=== PATIENT | male | born 1955 | race Caucasian/White ===

== ENCOUNTER 2017-06-08 14:58 | Emergency (ER) | payer OTHER ==
[~2017-06-08] VITALS: Ht 177.8 cm; Wt 60.0 kg
[~2017-06-08 14:58] MED LIST: CITA10TA4 PO; DILA100C PO; DILA125S PEG; DOCU100S PEG; DUONI NEB; ENOX40P SQ; KEPP750T PO; LORTA5 PO; MELO7.5T27 PO; RANI150 PEG; TRAZ100T10 PO; TRIPOIN TOPICAL
[2017-06-08 15:01] VITALS: BP 119/74; PULSE 80; RESP 13; TEMP 98.7; O2SAT 97
--- NOTE | 2017-06-08 16:05 | PD ---
HPI Chief Complaint: Wound/Suture/Staple Re-Check Time Seen by Provider: 16:02 Travel History International Travel<30 days: No Contact w/Intl Traveler<30days: No Traveled to known affect area: No History of Present Illness HPI This patient presents for suture removal. He was seen here in September or with a laceration to left occipital scalp. This was repaired with nonabsorbable sutures. The patient reports frustration because he was under the impression that he could not shower until the sutures removed. He has dried blood and scabbing at the site of the wound. No other complaints at this time. PFSH Past Medical History Arthritis: No Asthma: No Autoimmune Disease: No Blood Disorders: No Anxiety: Yes Depression: Yes Heart Rhythm Problems: No Cancer: No Cardiovascular Problems: No High Cholesterol: No Chemotherapy: No Chest Pain: Yes (When smoking) Congestive Heart Failure: No COPD: Yes Cerebrovascular Accident: Yes (SUBDURAL HEMATOMA) Diabetes: No Diminished Hearing: Yes ([place] ) Endocrine: No GERD: No Genitourinary: No Hiatal Hernia: No Immune Disorder: No Kidney Stones: No Musculoskeletal: No Neurologic: Yes (HX SUBDURAL HEMATOMA) Psychiatric: No Reproductive: No Respiratory: No Immunizations Current: Yes Migraines: No Radiation Therapy: No Renal Failure: No Seizures: Yes Sickle Cell Disease: No Sleep Apnea: Yes Thyroid Disease: No Ulcer: No Past Surgical History Abdominal Surgery: Yes (HERNIA) Cardiac Surgery: No Ear Surgery: No Endocrine Surgery: No Eye Surgery: No Genitourinary Surgery: Yes (VASECTOMY) Gynecologic Surgery: No Neurologic Surgery: Yes (TBI, SUBDURAL HEMATOMA EVACUATION) Oral Surgery: No Pacemaker: No Thoracic Surgery: No Other Surgery: Yes (TBI, HERNIA, VASECTOMY) Social History Alcohol Use: Yes (occ) Tobacco Use: No Substance Use: No Allergies-Medications (Allergen,Severity, Reaction): Coded Allergies: sertraline (Unverified Allergy, Unknown, 06/07/17) *MDRO Multi-Drug Resistant Organism (Verified Allergy, 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 Reported Resp: Albuterol/Ipratropium 2.5 Mg/0.5 Mg (Albuterol/Ipratropium) 1 Amp Nebu 1 Amp NEB Q6HPRN Colace (Docusate Sodium) 100 Mg/10 Ml Soln 100 Mg PEG BID Lovenox (Enoxaparin Sodium) 40 Mg/0.4 Ml Inj 40 Mg SQ DAILY UNGRADUATED PREFILLED SYRINGE Zantac 150 Mg Tab (Ranitidine HCl) 150 Mg Tab 150 Mg PEG BID Dilantin Susp (Phenytoin) 125 Mg/5 Ml Susp 150 Mg PEG TID Lortab 5/325 Tab (Hydrocodone-Acetaminophen) 1 Tab Tab 1 Tab PO Q6HPRN Meloxicam 7.5 Mg Tab 7.5 Mg PO DAILY Citalopram (Citalopram Hydrobromide) 10 Mg Tab 10 Mg PO DAILY Keppra (Levetiracetam) 750 Mg Tab 750 Mg PO BID Dilantin (Phenytoin Extended) 100 Mg Cap 100 Mg PO HS Dilantin (Phenytoin Extended) 100 Mg Cap 3 Tab PO DAILY@0600 Trazodone (Trazodone HCl) 100 Mg Tablet 100 Mg PO HS Review of Systems General / Constitutional: No: Fever Skin: Positive Other (positive for scabbing, sutures) Physical Exam Narrative GENERAL: This is a thin and frail male in no acute distress. SKIN: Warm and dry. Healing laceration to the left occipital scalp. The sutures are entirely covered by scabbing. HEAD: Skin as noted above. Normocephalic. EYES: Pupils equal and round. No scleral icterus. No injection or drainage. ENT: No nasal bleeding or discharge. Mucous membranes pink and moist. NECK: Trachea midline. No JVD. Data Data Last Documented VS Vital Signs Date Time Temp Pulse Resp B/P (MAP) Pulse Ox O2 Delivery O2 Flow Rate FiO2 06/08/17 15:01 98.7 80 13 119/74 (89) 97 Orders Orders Ed Discharge Order (06/08/17 16:02) [facility] Medical Decision Making Medical Screen Exam Complete: Yes Emergency Medical Condition: Yes Medical Record Reviewed: Yes Differential Diagnosis Suture removal, wound dehiscence, infected wound Narrative Course The scabbing had to be completely removed in order to remove the sutures which resulted in some wound dehiscence. Local wound care provided. The patient is stable for discharge. Diagnosis Primary Impression: Visit for suture removal Additional Instructions: Wash the wound on a daily basis with soap and water and apply antibiotic cream Med/Other Pt SpecificInfo: Wound Care Disposition: 01 DISCHARGE HOME Condition: Stable Sven Pelaez Jun 08, 2017 16:05
== END 2017-06-08 16:25 | disposition home or self-care (01) ==
LOC: NEPD 14:58
DX: Z48.02 Encounter for removal of sutures (principal)
CPT/HCPCS: 99281

== ENCOUNTER 2017-10-08 15:43 | Emergency (ER) | payer OTHER ==
[~2017-10-08] VITALS: Ht 177.8 cm; Wt 58.2 kg
[2017-10-08 16:04] VITALS: BP 118/84; PULSE 75; RESP 18; TEMP 98.9; O2SAT 98
--- NOTE | 2017-10-08 16:47 | PD ---
HPI Chief Complaint: Psychiatric Symptoms Time Seen by Provider: 16:42 Travel History International Travel<30 days: No Contact w/Intl Traveler<30days: No Traveled to known affect area: No History of Present Illness HPI Patient was sent to the emergency department from the [place] under Armando act for psychiatric evaluation. Per Armando act patient has been drinking excessively and falling. Patient denies any homicidal or suicidal ideations. Denies any visual or auditory hallucinations. Patient denies any pain anywhere. Denies anything makes symptoms better or worse. Patient states the [place] placed him under armando act and sent him for a CAT scan to make sure he did not have a head bleed as he has previously had bleeds in his brain. Denies any chest pain, shortness breath, fevers, nausea, vomiting, abdominal pain, loss change in bowel or bladder, weakness, numbness or tingling anywhere. PFSH Past Medical History Hx Anticoagulant Therapy: No Arthritis: No Asthma: No Autoimmune Disease: No Blood Disorders: No Anxiety: Yes Depression: Yes Heart Rhythm Problems: No Cancer: No Cardiovascular Problems: No High Cholesterol: No Chemotherapy: No Chest Pain: Yes (When smoking) Congestive Heart Failure: No COPD: Yes Cerebrovascular Accident: No Diabetes: No Diminished Hearing: Yes ([place] Endocrine: No GERD: No Genitourinary: No Hiatal Hernia: No Immune Disorder: No Kidney Stones: No Musculoskeletal: No Neurologic: Yes (HX SUBDURAL HEMATOMA) Psychiatric: No Reproductive: No Respiratory: No Immunizations Current: Yes Migraines: No Radiation Therapy: No Renal Failure: No Seizures: Yes Sickle Cell Disease: No Sleep Apnea: Yes Thyroid Disease: No Ulcer: No Past Surgical History Abdominal Surgery: Yes (HERNIA) Cardiac Surgery: No Ear Surgery: No Endocrine Surgery: No Eye Surgery: No Genitourinary Surgery: Yes (VASECTOMY) Gynecologic Surgery: No Neurologic Surgery: Yes (TBI, SUBDURAL HEMATOMA EVACUATION) Oral Surgery: No Pacemaker: No Thoracic Surgery: No Other Surgery: Yes (TBI, HERNIA, VASECTOMY) Social History Alcohol Use: Yes (occ) Tobacco Use: No Substance Use: No Allergies-Medications (Allergen,Severity, Reaction): Coded Allergies: *MDRO Multi-Drug Resistant Organism (Verified Allergy, Unknown, 10/08/17) MDR Stenotrophomonas maltophilia sertraline (Unverified Allergy, Unknown, 10/08/17) Reported Meds & Prescriptions Reported Meds & Active Scripts Active Reported Meloxicam 7.5 Mg Tab 7.5 Mg PO DAILY Keppra (Levetiracetam) 750 Mg Tab 750 Mg PO BID Dilantin (Phenytoin Extended) 100 Mg Cap 100 Mg PO HS Dilantin (Phenytoin Extended) 100 Mg Cap 3 Tab PO DAILY@0600 Trazodone (Trazodone HCl) 100 Mg Tablet 100 Mg PO HS Review of Systems Except as stated in HPI: all other systems reviewed are Neg Physical Exam Narrative GENERAL: Well-developed, under nourished, in no acute distress, and non-ill appearing. SKIN: Focused skin assessment warm and dry. HEAD: Atraumatic. Normocephalic. EYES: Pupils equal and round. EOMI. No scleral icterus. No injection or drainage. ENT: No nasal bleeding or discharge. Mucous membranes pink and moist. NECK: Trachea midline. Supple. No nuclear rigidity. CARDIOVASCULAR: Regular rate and rhythm. No murmur appreciated. Radial pulses 2+, intact, and equal bilaterally. Capillary refill less than 2 seconds. RESPIRATORY: No accessory muscle use. No respiratory distress. Clear to auscultation. Breath sounds equal bilaterally. GASTROINTESTINAL: Abdomen soft, non-tender, nondistended, and no guarding. Hepatic and splenic margins not palpable. No pulsatile mass. MUSCULOSKELETAL: No obvious deformities. No clubbing. No cyanosis. No edema. Full range of motion. Shoulder:FROM equal BL with passive flexion, extension, Abduction, Adduction, internal/external rotation, and pronation/supination. Sensation equal BL deltoid muscles. Pulses equal BL distal to injury. Capillary refill less than 2 seconds distal to injury and equal BL. FROM distal to injury and equal BL. Strength distal to injury equal BL. NV intact distal to injury equal BL. Flexion and extension of thumb equal BL. Equal strength and movement with abduction/adductions of BL fingers. Evening Or Night Nurse Supervisor strength equal BL. NEUROLOGICAL: Awake and alert. No obvious cranial nerve deficits. Motor grossly within normal limits. Normal speech. PSYCHIATRIC: Appropriate mood and affect; insight and judgment normal. Data Data Last Documented VS Vital Signs Date Time Temp Pulse Resp B/P (MAP) Pulse Ox O2 Delivery O2 Flow Rate FiO2 10/09/17 13:03 10/09/17 07:52 66 10/09/17 07:51 98.5 18 98 Room Air Orders Orders Complete Blood Count With Diff (10/08/17 16:42) Comprehensive Metabolic Panel (10/08/17 16:42) Thyroid Stimulating Hormone (10/08/17 16:42) Psych Screen (10/08/17 16:42) Drug Screen, Random Urine (10/08/17 16:42) Alcohol (Ethanol) (10/08/17 16:42) Salicylates (Aspirin) (10/08/17 16:42) Tylenol (Acetaminophen) (10/08/17 16:42) Ct Brain W/O Iv Contrast(Rout) (10/08/17 ) Phenytoin (Dilantin) (10/08/17 16:42) Levetiracetam (Keppra) (10/09/17 01:00) Phenytoin (Dilantin) (10/09/17 01:00) Trazodone (Desyrel) (10/09/17 01:00) Terazosin (Hytrin) (10/09/17 01:00) Donepezil (Aricept) (10/09/17 01:00) Citalopram (Celexa) (10/09/17 01:00) Acyclovir (Zovirax) (10/09/17 01:00) Ed Discharge Order (10/09/17 12:40) Labs Laboratory Tests Test 10/08/17 17:50 10/09/17 01:57 White Blood Count 5.1 TH/MM3 Red Blood Count 4.40 MIL/MM3 Hemoglobin 14.2 GM/DL Hematocrit 42.2 % Mean Corpuscular Volume 95.8 FL Mean Corpuscular Hemoglobin 32.3 PG Mean Corpuscular Hemoglobin Concent 33.7 % Red Cell Distribution Width 14.8 % Platelet Count 269 TH/MM3 Mean Platelet Volume 8.5 FL Neutrophils (%) (Auto) 61.0 % Lymphocytes (%) (Auto) 27.0 % Monocytes (%) (Auto) 10.0 % Eosinophils (%) (Auto) 0.9 % Basophils (%) (Auto) 1.1 % Neutrophils # (Auto) 3.1 TH/MM3 Lymphocytes # (Auto) 1.4 TH/MM3 Monocytes # (Auto) 0.5 TH/MM3 Eosinophils # (Auto) 0.0 TH/MM3 Basophils # (Auto) 0.1 TH/MM3 CBC Comment DIFF FINAL Differential Comment Blood Urea Nitrogen 16 MG/DL Creatinine 0.82 MG/DL Random Glucose 82 MG/DL Total Protein 6.8 GM/DL Albumin 3.8 GM/DL Calcium Level 8.5 MG/DL Alkaline Phosphatase 87 U/L Aspartate Amino Transf (AST/SGOT) 25 U/L Alanine Aminotransferase (ALT/SGPT) 33 U/L Total Bilirubin 0.5 MG/DL Sodium Level 138 MEQ/L Potassium Level 4.1 MEQ/L Chloride Level 102 MEQ/L Carbon Dioxide Level 24.5 MEQ/L Anion Gap 12 MEQ/L Estimat Glomerular Filtration Rate 95 ML/MIN Thyroid Stimulating Hormone 3rd Gen 0.836 uIU/ML Salicylates Level LESS THAN 1.7 MG/DL Acetaminophen Level LESS THAN 2.0 MCG/ML Phenytoin (Dilantin) Level 11.5 MCG/ML Ethyl Alcohol Level LESS THAN 3 MG/DL Urine Opiates Screen NEG Urine Barbiturates Screen NEG Urine Amphetamines Screen NEG Urine Benzodiazepines Screen NEG Urine Cocaine Screen NEG Urine Cannabinoids Screen NEG MDM Medical Decision Making Medical Screen Exam Complete: Yes Emergency Medical Condition: Yes Differential Diagnosis Intracranial hemorrhage, metabolic disturbance, acute psychosis, substance abuse Narrative Course Patient was seen and examined. Initial laboratory and radiological studies were ordered. Patient signed out to Odilon Osuna PA-C at the end of my shift pending labs. Please see his documentation for final diagnosis and disposition. Diagnosis Primary Impression: Medical clearance for psychiatric admission Condition: Stable Toño Moore Oct 08, 2017 16:47
--- NOTE | 2017-10-08 17:44 | RADRPT ---
EXAM DATE: 10/08/2017 5:32 PM EDT AGE/SEX: 61 years / Male INDICATIONS: Altered mental status. CLINICAL DATA: This is the patient's initial encounter. Patient reports that signs and symptoms have been present for 1 day and indicates a pain score of 0/10. MEDICAL/SURGICAL HISTORY: . Subdural hematoma Seizures Craniotomy. RADIATION DOSE: 66.34 CTDI (mGy) COMPARISON: [facility] [place]RAIN [place]/O CONTRAST, 05/24/2017. . TECHNIQUE: CT of the head without contrast. Using automated exposure control and adjustment of the mA and/or kV according to patient size, radiation dose was kept as low as reasonably achievable to ob tain optimal diagnostic quality images. 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 Left hemisphere unremarkable Ventricular size is appropriate Posterior fossa unremarkable Orbits and paranasal sinuses appear normal Previous craniotomy on the right. CONCLUSION: 1. 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 2. Negative for an acute process. Electronically signed by: Zion Almazan MD 10/08/2017 5:42 PM EDT
[2017-10-08 18:53] LABS: AUTOMATED NEUTROPHIL # 3.1 TH/MM3 (1.8-7.7); BASOPHIL # 0.1 TH/MM3 (0-0.2); BASOPHIL % 1.1 % (0.0-2.0); EOSINOPHIL % 0.9 % (0.0-4.0); HEMATOCRIT 42.2 % (39.0-51.0); HEMOGLOBIN 14.2 GM/DL (13.0-17.0); LYMPHOCYTE # 1.4 TH/MM3 (1.0-4.8); MEAN CELL VOLUME 95.8 FL (80.0-100.0); MEAN CORPUSCULAR HEMOGLOBIN 32.3 PG (27.0-34.0); MEAN CORPUSCULAR HGB CONC 33.7 % (32.0-36.0); MEAN PLATELET VOLUME 8.5 FL (7.0-11.0); MONOCYTE # 0.5 TH/MM3 (0-0.9); PLATELET COUNT 269 TH/MM3 (150-450); RED CELL DISTRIBUTION WIDTH 14.8 % (11.6-17.2); WHITE BLOOD COUNT 5.1 TH/MM3 (4.0-11.0)
[2017-10-08 19:21] LABS: ALBUMIN 3.8 GM/DL (3.4-5.0); ALT (GPT) 33 U/L (12-78); AST (GOT) 25 U/L (15-37); BICARBONATE 24.5 MEQ/L (21.0-32.0); BLOOD UREA NITROGEN 16 MG/DL (7-18); CALCIUM 8.5 MG/DL (8.5-10.1); CHLORIDE 102 MEQ/L (98-107); CREATININE 0.82 MG/DL (0.60-1.30); GLOMERULAR FILTRATION RATE 95 ML/MIN (>89); GLUCOSE,RANDOM 82 MG/DL (74-106); PHENYTOIN (DILANTIN) 11.5 MCG/ML (10.0-20.0); SODIUM (NA) 138 MEQ/L (136-145)
[2017-10-08 19:31] LABS: ALKALINE PHOSPHATASE 87 U/L (45-117); TOTAL BILIRUBIN ADULT 0.5 MG/DL (0.2-1.0); TOTAL PROTEIN 6.8 GM/DL (6.4-8.2)
--- NOTE | 2017-10-08 19:40 | PD ---
Physical Exam Date Seen by Provider: Oct 08, 2017 Time Seen by Provider: 19:39 Data Data Last Documented VS Vital Signs Date Time Temp Pulse Resp B/P (MAP) Pulse Ox O2 Delivery O2 Flow Rate FiO2 10/08/17 16:04 98.9 75 18 118/84 (95) 98 Orders Orders Complete Blood Count With Diff (10/08/17 16:42) Comprehensive Metabolic Panel (10/08/17 16:42) Thyroid Stimulating Hormone (10/08/17 16:42) Psych Screen (10/08/17 16:42) Drug Screen, Random Urine (10/08/17 16:42) Alcohol (Ethanol) (10/08/17 16:42) Salicylates (Aspirin) (10/08/17 16:42) Tylenol (Acetaminophen) (10/08/17 16:42) Ct Brain W/O Iv Contrast(Rout) (10/08/17 ) Phenytoin (Dilantin) (10/08/17 16:42) Labs Laboratory Tests Test 10/08/17 17:50 White Blood Count 5.1 TH/MM3 Red Blood Count 4.40 MIL/MM3 Hemoglobin 14.2 GM/DL Hematocrit 42.2 % Mean Corpuscular Volume 95.8 FL Mean Corpuscular Hemoglobin 32.3 PG Mean Corpuscular Hemoglobin Concent 33.7 % Red Cell Distribution Width 14.8 % Platelet Count 269 TH/MM3 Mean Platelet Volume 8.5 FL Neutrophils (%) (Auto) 61.0 % Lymphocytes (%) (Auto) 27.0 % Monocytes (%) (Auto) 10.0 % Eosinophils (%) (Auto) 0.9 % Basophils (%) (Auto) 1.1 % Neutrophils # (Auto) 3.1 TH/MM3 Lymphocytes # (Auto) 1.4 TH/MM3 Monocytes # (Auto) 0.5 TH/MM3 Eosinophils # (Auto) 0.0 TH/MM3 Basophils # (Auto) 0.1 TH/MM3 CBC Comment DIFF FINAL Differential Comment Blood Urea Nitrogen 16 MG/DL Creatinine 0.82 MG/DL Random Glucose 82 MG/DL Total Protein 6.8 GM/DL Albumin 3.8 GM/DL Calcium Level 8.5 MG/DL Alkaline Phosphatase 87 U/L Aspartate Amino Transf (AST/SGOT) 25 U/L Alanine Aminotransferase (ALT/SGPT) 33 U/L Total Bilirubin 0.5 MG/DL Sodium Level 138 MEQ/L Potassium Level 4.1 MEQ/L Chloride Level 102 MEQ/L Carbon Dioxide Level 24.5 MEQ/L Anion Gap 12 MEQ/L Estimat Glomerular Filtration Rate 95 ML/MIN Thyroid Stimulating Hormone 3rd Gen 0.836 uIU/ML Salicylates Level LESS THAN 1.7 MG/DL Phenytoin (Dilantin) Level 11.5 MCG/ML Ethyl Alcohol Level LESS THAN 3 MG/DL [facility] Medical Record Reviewed: Yes Supervised Visit with DIAMANTE: Yes Interpretation(s) Laboratory Tests Test 10/08/17 17:50 White Blood Count 5.1 TH/MM3 Red Blood Count 4.40 MIL/MM3 Hemoglobin 14.2 GM/DL Hematocrit 42.2 % Mean Corpuscular Volume 95.8 FL Mean Corpuscular Hemoglobin 32.3 PG Mean Corpuscular Hemoglobin Concent 33.7 % Red Cell Distribution Width 14.8 % Platelet Count 269 TH/MM3 Mean Platelet Volume 8.5 FL Neutrophils (%) (Auto) 61.0 % Lymphocytes (%) (Auto) 27.0 % Monocytes (%) (Auto) 10.0 % Eosinophils (%) (Auto) 0.9 % Basophils (%) (Auto) 1.1 % Neutrophils # (Auto) 3.1 TH/MM3 Lymphocytes # (Auto) 1.4 TH/MM3 Monocytes # (Auto) 0.5 TH/MM3 Eosinophils # (Auto) 0.0 TH/MM3 Basophils # (Auto) 0.1 TH/MM3 CBC Comment DIFF FINAL Differential Comment Blood Urea Nitrogen 16 MG/DL Creatinine 0.82 MG/DL Random Glucose 82 MG/DL Total Protein 6.8 GM/DL Albumin 3.8 GM/DL Calcium Level 8.5 MG/DL Alkaline Phosphatase 87 U/L Aspartate Amino Transf (AST/SGOT) 25 U/L Alanine Aminotransferase (ALT/SGPT) 33 U/L Total Bilirubin 0.5 MG/DL Sodium Level 138 MEQ/L Potassium Level 4.1 MEQ/L Chloride Level 102 MEQ/L Carbon Dioxide Level 24.5 MEQ/L Anion Gap 12 MEQ/L Estimat Glomerular Filtration Rate 95 ML/MIN Thyroid Stimulating Hormone 3rd Gen 0.836 uIU/ML Salicylates Level LESS THAN 1.7 MG/DL Phenytoin (Dilantin) Level 11.5 MCG/ML Ethyl Alcohol Level LESS THAN 3 MG/DL Last [address] 10/08/17 0000 Signed Impressions: CONCLUSION: 1. 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 2. Negative for an acute process. Differential Diagnosis MDM: High Differential diagnoses: Schizophrenia, schizoaffective disorder, bipolar, anxiety, depression, adjustment reaction, mood disorder NOS, ODD, depressive disorder NOS, dementia, dementia with agitation, psychosis NOS, substance induced mood disorder, DMDD, Asperger syndrome, infection,electrolyte abnormality, malingering. Narrative Course Mental health screening discussed with the patient. Psychiatric screen ordered. The patient has been medically cleared. The CT scan of the brain is unremarkable for acute intracranial injury. Laboratory tests have been reviewed. This is medical clearance for psychiatric admission Diagnosis Primary Impression: Medical clearance for psychiatric admission Condition: Stable Odilon Osuna Oct 08, 2017 19:40
[2017-10-08 19:43] LABS: ACETAMINOPHEN LESS THAN 2.0 MCG/ML (10.0-30.0)
[2017-10-08 23:58] VITALS: BP 123/74; PULSE 70; RESP 18; O2SAT 97
[2017-10-09] MEDS ORDERED: levETIRAcetam 500 MG TAB PO ONE (01:00)
[2017-10-09] MEDS ORDERED: DONEPEZIL HCL 5 MG TAB PO ONE (01:00)
[2017-10-09] MEDS ORDERED: ACYCLOVIR 200 MG CAP PO ONE (01:00)
[2017-10-09] MEDS ORDERED: CITALOPRAM HYDROBROMIDE 20 MG TAB PO ONE (01:00)
[2017-10-09] MEDS ORDERED: traZODone HCL 100 MG TAB PO ONE (01:00)
[2017-10-09] MEDS ORDERED: PHENYTOIN SODIUM 100 MG CAP PO ONE (01:00)
[2017-10-09] MEDS ORDERED: TERAZOSIN HCL 1 MG CAP PO ONE (01:00)
[2017-10-09 07:51] VITALS: BP 140/74; PULSE 66; RESP 18; TEMP 98.5; O2SAT 98
--- NOTE | 2017-10-09 12:42 | PD ---
Physical Exam Date Seen by Provider: Oct 09, 2017 Time Seen by Provider: 12:41 Narrative For full history and physical examination please see previous providers note. Data Data Last Documented VS Vital Signs Date Time Temp Pulse Resp B/P (MAP) Pulse Ox O2 Delivery O2 Flow Rate FiO2 10/09/17 07:52 66 10/09/17 07:51 98.5 18 140/74 (96) 98 Room Air Orders Orders Complete Blood Count With Diff (10/08/17 16:42) Comprehensive Metabolic Panel (10/08/17 16:42) Thyroid Stimulating Hormone (10/08/17 16:42) Psych Screen (10/08/17 16:42) Drug Screen, Random Urine (10/08/17 16:42) Alcohol (Ethanol) (10/08/17 16:42) Salicylates (Aspirin) (10/08/17 16:42) Tylenol (Acetaminophen) (10/08/17 16:42) Ct Brain W/O Iv Contrast(Rout) (10/08/17 ) Phenytoin (Dilantin) (10/08/17 16:42) Levetiracetam (Keppra) (10/09/17 01:00) Phenytoin (Dilantin) (10/09/17 01:00) Trazodone (Desyrel) (10/09/17 01:00) Terazosin (Hytrin) (10/09/17 01:00) Donepezil (Aricept) (10/09/17 01:00) Citalopram (Celexa) (10/09/17 01:00) Acyclovir (Zovirax) (10/09/17 01:00) Diet Regular Basic (10/09/17 Lunch) Ed Discharge Order (10/09/17 12:40) Labs Laboratory Tests Test 10/08/17 17:50 10/09/17 01:57 White Blood Count 5.1 TH/MM3 Red Blood Count 4.40 MIL/MM3 Hemoglobin 14.2 GM/DL Hematocrit 42.2 % Mean Corpuscular Volume 95.8 FL Mean Corpuscular Hemoglobin 32.3 PG Mean Corpuscular Hemoglobin Concent 33.7 % Red Cell Distribution Width 14.8 % Platelet Count 269 TH/MM3 Mean Platelet Volume 8.5 FL Neutrophils (%) (Auto) 61.0 % Lymphocytes (%) (Auto) 27.0 % Monocytes (%) (Auto) 10.0 % Eosinophils (%) (Auto) 0.9 % Basophils (%) (Auto) 1.1 % Neutrophils # (Auto) 3.1 TH/MM3 Lymphocytes # (Auto) 1.4 TH/MM3 Monocytes # (Auto) 0.5 TH/MM3 Eosinophils # (Auto) 0.0 TH/MM3 Basophils # (Auto) 0.1 TH/MM3 CBC Comment DIFF FINAL Differential Comment Blood Urea Nitrogen 16 MG/DL Creatinine 0.82 MG/DL Random Glucose 82 MG/DL Total Protein 6.8 GM/DL Albumin 3.8 GM/DL Calcium Level 8.5 MG/DL Alkaline Phosphatase 87 U/L Aspartate Amino Transf (AST/SGOT) 25 U/L Alanine Aminotransferase (ALT/SGPT) 33 U/L Total Bilirubin 0.5 MG/DL Sodium Level 138 MEQ/L Potassium Level 4.1 MEQ/L Chloride Level 102 MEQ/L Carbon Dioxide Level 24.5 MEQ/L Anion Gap 12 MEQ/L Estimat Glomerular Filtration Rate 95 ML/MIN Thyroid Stimulating Hormone 3rd Gen 0.836 uIU/ML Salicylates Level LESS THAN 1.7 MG/DL Acetaminophen Level LESS THAN 2.0 MCG/ML Phenytoin (Dilantin) Level 11.5 MCG/ML Ethyl Alcohol Level LESS THAN 3 MG/DL Urine Opiates Screen NEG Urine Barbiturates Screen NEG Urine Amphetamines Screen NEG Urine Benzodiazepines Screen NEG Urine Cocaine Screen NEG Urine Cannabinoids Screen NEG MDM Medical Record Reviewed: Yes Supervised Visit with DIAMANTE: No Narrative Course Patient was brought into emergency department under Armando act, he was seen and medically cleared. He was then seen and evaluated by psychiatrist. Armando act was lifted. Please see his documentation. Patient will be discharged to caregiver. Diagnosis Primary Impression: Anxiety disorder Qualified Codes: F41.9 - Anxiety disorder, unspecified Referrals: Primary Care Physician Patient Instructions: General Instructions Additional Instruction: Follow-up with your primary doctor Return to emergency department for any new or worsening symptoms Med/Other Pt SpecificInfo: No Change to Meds Disposition: 01 DISCHARGE HOME Condition: Stable YasmaniHilary sommersAmanda MEAT TEAM LEAD Oct 09, 2017 12:42
--- NOTE | 2017-10-09 14:09 | PD.PSY.CON ---
Provisional Diagnosis Admission Date History of Present Illness Service Psychiatry Consult Requested By ER Reason for Consult Patient is on the Armando act Primary Care Physician [facility] HPI The patient is a 61-year-old man, patient has history of alcohol use disorder, patient was sent to the emergency department from the [place] under Armando act for psychiatric evaluation. Per Armando act patient has been drinking excessively and falling. Patient denies any homicidal or suicidal ideations. Denies any visual or auditory hallucinations. Patient denies any pain anywhere. Denies anything makes symptoms better or worse. [facility] and sending for a CAT scan to make sure to have a bleed and has had as he previously had bleeds in his brain. Denies any chest pain, shortness breath, fevers, nausea, vomiting, abdominal pain, loss change in bowel or bladder, weakness, numbness or tingling anywhere. Past Family Social History Coded Allergies: *MDRO Multi-Drug Resistant Organism (Verified Allergy, Unknown, 10/08/17) MDR Stenotrophomonas maltophilia sertraline (Unverified Allergy, Unknown, 10/08/17) Reported Medications Meloxicam (Meloxicam) 7.5 Mg Tab, 7.5 MG PO DAILY for Arthritis Pain, TAB 0 Refills 05/25/17 Levetiracetam (Keppra) 750 Mg Tab, 750 MG PO BID for Control Seizures, #60 TAB 0 Refills 05/25/17 Phenytoin Extended (Dilantin) 100 Mg Cap, 100 MG PO HS for Control Seizures, # 90 CAP 0 Refills 05/25/17 Phenytoin Extended (Dilantin) 100 Mg Cap, 3 TAB PO DAILY@0600 for Control Seizures, #90 CAP 0 Refills 05/25/17 Trazodone (Trazodone) 100 Mg Tablet, 100 MG PO HS for Control Depression, #30 TAB 0 Refills 05/25/17 Discontinued Reported Medications Citalopram (Citalopram) 10 Mg Tab, 10 MG PO DAILY for Control Depression, #30 TAB 0 Refills 05/25/17 Albuterol/Ipratropium (Resp: Albuterol/Ipratropium 2.5 Mg/0.5 Mg) 1 Amp Nebu, 1 AMP NEB Q6HPRN 09/10/12 Docusate Sodium (Colace) 100 Mg/10 Ml Soln, 100 MG PEG BID 09/10/12 Enoxaparin Sodium (Lovenox) 40 Mg/0.4 Ml Inj, 40 MG SQ DAILY UNGRADUATED PREFILLED SYRINGE 09/10/12 Ranitidine HCl (Zantac 150 Mg Tab) 150 Mg Tab, 150 MG PEG BID 09/10/12 Phenytoin (Dilantin Susp) 125 Mg/5 Ml Susp, 150 MG PEG TID 09/10/12 Hydrocodone/Acetaminophen 5 mg/325 mg (Hydrocodone/Acetaminophen 5 mg/325 mg) 1 Tab Tab, 1 TAB PO Q6HPRN, #12 09/10/12 Discontinued Scripts Cafqatem-Vfzlpcmtjf-Ttiyyneut (Triple Antibiotic 3.5-400-5000) 3.5 Mg-400 Unit-5 ,000 Unit/Gram Oin, 1 APPLIC TOPICAL BID for wound, #1 TUBE apply to head wound twice a day x1week. Prov:Naz Odonnell PA-C 05/26/17 Physical Exam Vital Signs Vital Signs Date Time Temp Pulse Resp B/P (MAP) Pulse Ox O2 Delivery O2 Flow Rate FiO2 10/09/17 13:03 10/09/17 07:52 66 10/09/17 07:51 98.5 18 98 Room Air Lab Results Test 10/08/17 17:50 10/09/17 01:57 White Blood Count 5.1 TH/MM3 Red Blood Count 4.40 MIL/MM3 Hemoglobin 14.2 GM/DL Hematocrit 42.2 % Mean Corpuscular Volume 95.8 FL Mean Corpuscular Hemoglobin 32.3 PG Mean Corpuscular Hemoglobin Concent 33.7 % Red Cell Distribution Width 14.8 % Platelet Count 269 TH/MM3 Mean Platelet Volume 8.5 FL Neutrophils (%) (Auto) 61.0 % Lymphocytes (%) (Auto) 27.0 % Monocytes (%) (Auto) 10.0 % Eosinophils (%) (Auto) 0.9 % Basophils (%) (Auto) 1.1 % Neutrophils # (Auto) 3.1 TH/MM3 Lymphocytes # (Auto) 1.4 TH/MM3 Monocytes # (Auto) 0.5 TH/MM3 Eosinophils # (Auto) 0.0 TH/MM3 Basophils # (Auto) 0.1 TH/MM3 CBC Comment DIFF FINAL Differential Comment Blood Urea Nitrogen 16 MG/DL Creatinine 0.82 MG/DL Random Glucose 82 MG/DL Total Protein 6.8 GM/DL Albumin 3.8 GM/DL Calcium Level 8.5 MG/DL Alkaline Phosphatase 87 U/L Aspartate Amino Transf (AST/SGOT) 25 U/L Alanine Aminotransferase (ALT/SGPT) 33 U/L Total Bilirubin 0.5 MG/DL Sodium Level 138 MEQ/L Potassium Level 4.1 MEQ/L Chloride Level 102 MEQ/L Carbon Dioxide Level 24.5 MEQ/L Anion Gap 12 MEQ/L Estimat Glomerular Filtration Rate 95 ML/MIN Thyroid Stimulating Hormone 3rd Gen 0.836 uIU/ML Salicylates Level LESS THAN 1.7 MG/DL Acetaminophen Level LESS THAN 2.0 MCG/ML Phenytoin (Dilantin) Level 11.5 MCG/ML Ethyl Alcohol Level LESS THAN 3 MG/DL Urine Opiates Screen NEG Urine Barbiturates Screen NEG Urine Amphetamines Screen NEG Urine Benzodiazepines Screen NEG Urine Cocaine Screen NEG Urine Cannabinoids Screen NEG Mental Status Examination Appearance: Appropriate Consciousness: Alert Orientation: x4 Motor Activity: Normal gait Speech: Unremarkable Language: Adequate Fund of Knowledge: Adequate Attention and Concentration: Adequate Memory: Unremarkable Mood: Appropriate Affect: Appropriate Thought Process & Associations: Intact Thought Content: Appropriate Hallucination Type: None Delusion Type: None Suicidal Ideation: No Suicidal Plan: No Suicidal Intention: No Homicidal Ideation: No Homicidal Plan: No Homicidal Intention: No Insight: Adequate Judgment: Adequate Assessment & Plan Problem List: (1) Alcohol abuse with alcohol-induced mood disorder ICD Codes: F10.14 - Alcohol abuse with alcohol-induced mood disorder Assessment & Plan: The patient does not have indication of psychiatric admission. The patient is an alcoholic, who drinks excessively, but he does not present any neuropsychiatric symptoms at this moment that require an immediate psychiatric intervention. Patient was offered a referral to go to [facility] for detox/rehab. Patient denies suicidal and homicidal ideation, denies visual and auditory hallucinations. Assessment & Plan Estimated LOS: Antwan Hsu MD Oct 09, 2017 14:09
== END 2017-10-09 13:03 | disposition home or self-care (01) ==
LOC: NEDAMB 15:43 → NEPD 10-09 13:03
DX: F41.9 Anxiety disorder, unspecified (principal); F10.14 Alcohol abuse with alcohol-induced mood disorder; J44.9 Chronic obstructive pulmonary disease, unspecified; F32.9 Major depressive disorder, single episode, unspecified; Y90.0 Blood alcohol level of less than 20 mg/100 ml; Z91.81 History of falling; Z88.8 Allergy status to other drugs, medicaments and biological substances; Z79.899 Other long term (current) drug therapy
CPT/HCPCS: 70450; 80053; 80185; 80307; 84443; 85025